=== PATIENT | male | born 1960 | race Caucasian/White ===

== ENCOUNTER 2024-04-13 08:49 | Emergency (ER) | payer BC ==
[~2024-04-13] VITALS: Ht 188 cm; Wt 104.3 kg
[2024-04-13 08:51] VITALS: BP 153/87; PULSE 59; RESP 16; TEMP 98; O2SAT 98
== END 2024-04-13 09:56 | disposition home or self-care (01) ==
LOC: ER 08:50
DX: S92.515A Nondisplaced fracture of proximal phalanx of left lesser toe(s), initial encounter for closed fracture (principal); F17.200 Nicotine dependence, unspecified, uncomplicated; Z72.89 Other problems related to lifestyle; W22.8XXA Striking against or struck by other objects, initial encounter; Y93.89 Activity, other specified; Y92.89 Other specified places as the place of occurrence of the external cause; Y99.8 Other external cause status
CPT/HCPCS: 73660; 99283; L3260

== ENCOUNTER 2024-08-12 10:46 | Emergency (ER) | payer BC ==
[~2024-08-12] VITALS: Ht 188 cm; Wt 112.3 kg
[2024-08-12 11:36] LABS: BASOPHILS # (AUTO) 0.1 X10'3 (0-0.2); BASOPHILS % (AUTO) 0.9 % (0-1); EOSINOPHILS # (AUTO) 0.3 X10'3 (0-0.9); EOSINOPHILS % (AUTO) 2.9 % (0-6); HEMATOCRIT 43.4 % (42.0-52.0); HEMOGLOBIN 14.5 g/dl (14.0-17.9); LYMPHOCYTES % (AUTO) 22.1 % (21-51); MEAN CORPUSCULAR HEMOGLOBIN 31.1 PG (27.0-31.0); MEAN CORPUSCULAR HGB CONC 33.4 g/dL (33.0-36.5); MEAN CORPUSCULAR VOLUME 93.2 FL (78-98); MEAN PLATELET VOLUME 7.2 FL (7.4-10.4); MONOCYTES # (AUTO) 0.6 X10'3 (0-0.9); NEUTROPHILS # (AUTO) 5.9 X10'3 (1.8-7.7); NEUTROPHILS % (AUTO) 67.1 % (42-75); PLATELET COUNT 251 X10'3 (140-440); RED BLOOD COUNT 4.66 X10'6 (4.70-6.10); RED CELL DISTRIBUTION WIDTH 14.4 % (11.5-14.5); WHITE BLOOD COUNT 8.9 X10'3 (4.5-11.0)
[2024-08-12 11:59] LABS: ANION GAP 8 (8-16); BLOOD UREA NITROGEN 15 MG/DL (7-18); BUN/CREATININE RATIO 20.5 (10.0-20.0); CALCIUM 8.8 MG/DL (8.5-10.1); CHLORIDE 109 MMOL/L (99-107); CREATININE 0.73 MG/DL (0.60-1.10); GLUCOSE 90 MG/DL (70-104); POTASSIUM 4.1 MMOL/L (3.5-5.1); PRO BRAIN NATRIURETIC PEPTIDE 44 PG/ML (0-125); SODIUM 141 MMOL/L (135-145); TOTAL CARBON DIOXIDE 24.4 MMOL/L (24-32); eCRCL 122 ML/MIN; eGFR > 90 ML/MIN
[2024-08-12] MEDS: ipratropium/albuterol 3ml nebule NEB ONE (12:27)
[2024-08-12 12:28] VITALS: PULSE 75; RESP 20; O2SAT 99
[2024-08-12 12:35] VITALS: PULSE 62; RESP 18; O2SAT 99
[2024-08-12] MEDS: dexamethasone sod phosphate 10mg/ml inj IM STA (12:37)
[2024-08-12] MEDS ORDERED: PRED20TA PO (14:12)
[2024-08-12 14:44] VITALS: BP 124/85; PULSE 58; RESP 14; TEMP 97.6; O2SAT 94
== END 2024-08-12 14:50 | disposition home or self-care (01) ==
LOC: ER 10:46
DX: J40 Bronchitis, not specified as acute or chronic (principal)
CPT/HCPCS: 36415; 71045; 80048; 83880; 84484; 85025; 87502; 87503; 93005; 94640; 96372; 99285; J1100; 94760